=== PATIENT | male | born 1950 | race Two or more races ===

== ENCOUNTER 2019-06-19 12:17 | Inpatient (IN) | payer MEDICARE, OTHER ==
[~2019-06-19] VITALS: Ht 162.6 cm; Wt 73.0 kg
[2019-06-19] MEDS ORDERED: ONDANSETRON HCL 4MG/2ML INJ IV STA (12:51)
[2019-06-19] MEDS ORDERED: MORPHINE SULFATE 4 MG/ML CPJ (NOT FOR IM USE) IV STA (12:51)
[2019-06-19] MEDS ORDERED: NITROGLYCERIN OINT 1GM/INCH UDPKT TD ONE (13:00)
[2019-06-19] MEDS ORDERED: ASPIRIN 81MG TABLET PO ONE (13:00)
[2019-06-19 13:19] LABS: BASOPHILS % 0.8 % (0.0-2.0); EOSINOPHILS % 5.3 % (0.0-5.0); LYMPHOCYTES % 23.1 % (20.0-50.0); MEAN CORPUSCULAR HEMOGLOBIN 33.4 pg (28.0-32.0); MEAN CORPUSCULAR VOLUME 97.7 fL (80.0-94.0); MEAN PLATELET VOLUME 7.6 fl (7.4-10.4); MONOCYTES % 6.8 % (2.0-8.0); PLATELET 188 x1000/uL (130-400); RED BLOOD CELL COUNT 4.51 mill/uL (4.7-6.1); RED CELL DISTRIBUTION WIDTH 13.4 % (11.6-14.6)
[2019-06-19 13:28] LABS: CHLORIDE 107 mEq/L (98-107)
[2019-06-19 13:31] LABS: ETHANOL BLOOD < 10 mg/dL
[2019-06-19 15:10] LABS: *AMPHETAMINES SCREEN URINE NEGATIVE (NEGATIVE); *BARBITURATES SCREEN URINE NEGATIVE (NEGATIVE); *BENZODIAZEPINES SCREEN URINE NEGATIVE (NEGATIVE); *COCAINE SCREEN URINE NEGATIVE (NEGATIVE); METHADONE URINE SCREEN NEGATIVE (NEGATIVE); OPIATES URINE SCREEN NEGATIVE (NEGATIVE)
[2019-06-19 15:11] LABS: CANNABINOID URINE SCREEN NEGATIVE (NEGATIVE); PHENCYCLIDINE URINE SCREEN NEGATIVE (NEGATIVE)
[2019-06-19 15:45] VITALS: BP 116/52
[2019-06-19 16:00] VITALS: BP 116/52
[2019-06-19] MEDS ORDERED: DOCU100T PO (16:30)
[2019-06-19] MEDS ORDERED: ROPI0.257 PO (16:30)
[2019-06-19] MEDS ORDERED: AMAN100T PO (16:30)
[2019-06-19] MEDS ORDERED: TICA90TA PO (16:30)
[2019-06-19] MEDS ORDERED: ENTA200T2 PO (16:42)
[2019-06-19] MEDS ORDERED: MIRT15TA6 PO (16:42)
[2019-06-19] MEDS ORDERED: CARB-32 PO (16:42)
[2019-06-19] MEDS ORDERED: ATOR40TA70 PO (16:42)
[2019-06-19] MEDS ORDERED: POLY119P18 PO (16:42)
[2019-06-19] MEDS ORDERED: SERT-112 PO (16:42)
[2019-06-19] MEDS ORDERED: VENL-180 PO (16:43)
[2019-06-19] MEDS ORDERED: ASPI-1393 PO (18:38)
[2019-06-19] MEDS ORDERED: MAGNESIUM/ALUMINUM HYDROXIDE/SIMETHICONE 30ML UDC PO PRN (18:45)
[2019-06-19] MEDS ORDERED: CLONIDINE 0.1MG TABLET PO PRN (18:45)
[2019-06-19] MEDS ORDERED: GUAIFENESIN 200MG/10ML SUGAR FREE UDC PO PRN (18:45)
[2019-06-19] MEDS ORDERED: ONDANSETRON HCL 4MG/2ML INJ IV PRN (18:45)
[2019-06-19] MEDS ORDERED: ACETAMINOPHEN 325MG TABLET PO PRN (18:45)
[2019-06-19] MEDS ORDERED: DIPHENHYDRAMINE 50MG/ML VIAL IV PRN (18:45)
[2019-06-19 20:00] VITALS: BP 106/70
[2019-06-19] MEDS: ENOXAPARIN 40MG/0.4ML SYR SUBCUT SCH (20:57)
[2019-06-19] MEDS: MIRTAZAPINE 15MG TABLET PO SCH (20:58)
[2019-06-19] MEDS: VENLAFAXINE HCL 75MG TABLET PO SCH (20:58)
[2019-06-19] MEDS: ATORVASTATIN CALCIUM 40MG TABLET PO SCH (20:58)
[2019-06-19] MEDS: FAMOTIDINE 20MG TABLET PO SCH (20:58)
[2019-06-19] MEDS: ENTACAPONE 200MG TABLET PO SCH (20:58)
[2019-06-19] MEDS: CARBIDOPA/LEVODOPA 25/100MG TABLET PO SCH (20:59)
[2019-06-19] MEDS: SODIUM CHLORIDE 0.9% INJ 3ML FLUSH IVF SCH (21:02)
[2019-06-20 00:42] VITALS: BP 104/70
[2019-06-20 04:00] VITALS: BP 107/60
[2019-06-20] MEDS: CARBIDOPA/LEVODOPA 25/100MG TABLET PO SCH ×3 (05:29→21:29)
[2019-06-20] MEDS: SODIUM CHLORIDE 0.9% INJ 3ML FLUSH IVF SCH ×3 (05:36→21:29)
[2019-06-20] MEDS ORDERED: REGADENOSON 0.4 MG/5 ML IV NR (06:45)
[2019-06-20 07:36] LABS: LDL CHOLESTEROL 75 mg/dL (5-100)
[2019-06-20 07:37] LABS: HDL CHOLESTEROL 32 mg/dL (40-59)
[2019-06-20 08:00] VITALS: BP 115/68
[2019-06-20] MEDS: POLYETHYLENE GLYCOL 3350 (17GM) 1 DOSE PACK PO SCH (08:54)
[2019-06-20] MEDS: ENTACAPONE 200MG TABLET PO SCH ×4 (08:55→20:46)
[2019-06-20] MEDS: ROPINIROLE HCL 0.25MG TABLET PO SCH ×2 (08:55→17:05)
[2019-06-20] MEDS: DOCUSATE SODIUM 100MG CAPSULE PO SCH ×2 (08:55→17:06)
[2019-06-20] MEDS: TICAGRELOR 90 MG TABLET PO SCH ×2 (08:56→17:06)
[2019-06-20] MEDS: ASPIRIN 81MG EC TABLET PO SCH (08:56)
[2019-06-20] MEDS: SERTRALINE HCL 100MG TABLET PO SCH (08:56)
[2019-06-20] MEDS: METOPROLOL TARTRATE 25MG TABLET PO SCH ×2 (09:03→20:45)
[2019-06-20] MEDS: VENLAFAXINE HCL 75MG TABLET PO SCH ×2 (09:06→20:46)
[2019-06-20 12:00] VITALS: BP 100/54
[2019-06-20 13:44] LABS: HEMATOCRIT 44.9 % (42.0-52.0); HEMOGLOBIN 15.2 g/dL (14.0-18.0); MEAN CORPUSCULAR HEMOGLOBIN 33.4 pg (28.0-32.0); MEAN CORPUSCULAR VOLUME 98.6 fL (80.0-94.0); PLATELET 196 x1000/uL (130-400); RED BLOOD CELL COUNT 4.55 mill/uL (4.7-6.1); RED CELL DISTRIBUTION WIDTH 13.5 % (11.6-14.6)
[2019-06-20 14:04] LABS: CHLORIDE 105 mEq/L (98-107)
[2019-06-20 16:00] VITALS: BP 110/66
[2019-06-20 20:00] VITALS: BP 131/78
[2019-06-20] MEDS: ENOXAPARIN 40MG/0.4ML SYR SUBCUT SCH (20:45)
[2019-06-20] MEDS: ATORVASTATIN CALCIUM 40MG TABLET PO SCH (20:46)
[2019-06-20] MEDS: FAMOTIDINE 20MG TABLET PO SCH (20:46)
[2019-06-20] MEDS: MIRTAZAPINE 15MG TABLET PO SCH (20:47)
[2019-06-20] MEDS ORDERED: ATORVASTATIN CALCIUM 10MG TABLET PO SCH (21:00)
[2019-06-21] VITALS: BP 135/67
[2019-06-21 04:00] VITALS: BP 112/62
[2019-06-21] MEDS: CARBIDOPA/LEVODOPA 25/100MG TABLET PO SCH ×3 (05:57→21:14)
[2019-06-21] MEDS: SODIUM CHLORIDE 0.9% INJ 3ML FLUSH IVF SCH ×3 (05:57→21:24)
[2019-06-21 07:27] LABS: HEMATOCRIT 43.1 % (42.0-52.0); HEMOGLOBIN 14.4 g/dL (14.0-18.0); MEAN CORPUSCULAR HEMOGLOBIN 32.9 pg (28.0-32.0); MEAN CORPUSCULAR VOLUME 98.2 fL (80.0-94.0); PLATELET 172 x1000/uL (130-400); RED BLOOD CELL COUNT 4.39 mill/uL (4.7-6.1); RED CELL DISTRIBUTION WIDTH 13.4 % (11.6-14.6)
[2019-06-21 07:56] LABS: CHLORIDE 103 mEq/L (98-107)
[2019-06-21 08:00] VITALS: BP 108/72
[2019-06-21] MEDS: TICAGRELOR 90 MG TABLET PO SCH ×2 (08:15→16:36)
[2019-06-21] MEDS: ROPINIROLE HCL 0.25MG TABLET PO SCH ×2 (08:15→16:36)
[2019-06-21] MEDS: DOCUSATE SODIUM 100MG CAPSULE PO SCH ×2 (08:15→16:36)
[2019-06-21] MEDS: SERTRALINE HCL 100MG TABLET PO SCH (08:15)
[2019-06-21] MEDS: ASPIRIN 81MG EC TABLET PO SCH (08:15)
[2019-06-21] MEDS: ENTACAPONE 200MG TABLET PO SCH ×4 (08:15→21:24)
[2019-06-21] MEDS: VENLAFAXINE HCL 75MG TABLET PO SCH ×2 (08:16→21:22)
[2019-06-21] MEDS: METOPROLOL TARTRATE 25MG TABLET PO SCH ×2 (08:16→21:00)
[2019-06-21] MEDS: POLYETHYLENE GLYCOL 3350 (17GM) 1 DOSE PACK PO SCH (08:16)
[2019-06-21 12:00] VITALS: BP 105/68
[2019-06-21 15:43] VITALS: BP 108/66
[2019-06-21 20:00] VITALS: BP 109/67
[2019-06-21] MEDS: FAMOTIDINE 20MG TABLET PO SCH (21:14)
[2019-06-21] MEDS: MIRTAZAPINE 15MG TABLET PO SCH (21:14)
[2019-06-21] MEDS: ATORVASTATIN CALCIUM 40MG TABLET PO SCH (21:14)
[2019-06-21] MEDS: ENOXAPARIN 40MG/0.4ML SYR SUBCUT SCH (21:20)
[2019-06-22] VITALS: BP 100/70
[2019-06-22 04:00] VITALS: BP 115/73
[2019-06-22] MEDS: CARBIDOPA/LEVODOPA 25/100MG TABLET PO SCH ×3 (05:31→21:59)
[2019-06-22] MEDS: SODIUM CHLORIDE 0.9% INJ 3ML FLUSH IVF SCH ×3 (05:57→21:59)
[2019-06-22 07:53] LABS: BASOPHILS % 0.6 % (0.0-2.0); EOSINOPHILS % 6.2 % (0.0-5.0); HEMATOCRIT. 44.5 % (42.0-52.0); HEMOGLOBIN. 15.1 g/dL (14.0-18.0); LYMPHOCYTES % 26.4 % (20.0-50.0); MEAN CORPUSCULAR HEMOGLOBIN 33.1 pg (28.0-32.0); MEAN CORPUSCULAR VOLUME 97.5 fL (80.0-94.0); MEAN PLATELET VOLUME 7.4 fl (7.4-10.4); NEUTROPHILS % 59.8 % (40.0-76.0); PLATELET 170 x1000/uL (130-400); RED BLOOD CELL COUNT 4.56 mill/uL (4.7-6.1); RED CELL DISTRIBUTION WIDTH 13.6 % (11.6-14.6)
[2019-06-22 08:00] VITALS: BP 129/78
[2019-06-22] MEDS: ROPINIROLE HCL 0.25MG TABLET PO SCH ×2 (08:38→20:05)
[2019-06-22] MEDS: METOPROLOL TARTRATE 25MG TABLET PO SCH ×2 (08:38→20:36)
[2019-06-22] MEDS: SERTRALINE HCL 100MG TABLET PO SCH (08:38)
[2019-06-22] MEDS: TICAGRELOR 90 MG TABLET PO SCH ×2 (08:38→20:02)
[2019-06-22] MEDS: ENTACAPONE 200MG TABLET PO SCH ×4 (08:38→21:00)
[2019-06-22] MEDS: ASPIRIN 81MG EC TABLET PO SCH (08:38)
[2019-06-22] MEDS: DOCUSATE SODIUM 100MG CAPSULE PO SCH ×2 (08:39→20:01)
[2019-06-22 08:51] LABS: CHLORIDE 104 mEq/L (98-107)
[2019-06-22] MEDS ORDERED: REGADENOSON 0.4 MG/5 ML IV ONE (10:20)
[2019-06-22 12:00] VITALS: BP 120/63
[2019-06-22] MEDS: VENLAFAXINE HCL 50MG TABLET PO SCH ×2 (14:22→21:05)
[2019-06-22] MEDS: POLYETHYLENE GLYCOL 3350 (17GM) 1 DOSE PACK PO SCH (14:26)
[2019-06-22 16:00] VITALS: BP 110/80
[2019-06-22 20:00] VITALS: BP 107/76
[2019-06-22] MEDS: ENOXAPARIN 40MG/0.4ML SYR SUBCUT SCH (21:04)
[2019-06-22] MEDS: FAMOTIDINE 20MG TABLET PO SCH (21:05)
[2019-06-22] MEDS: ATORVASTATIN CALCIUM 40MG TABLET PO SCH (21:06)
[2019-06-22] MEDS: MIRTAZAPINE 15MG TABLET PO SCH (21:06)
[2019-06-23] VITALS (7 sets, daily range): BP systolic 100–130; BP diastolic 59–78
[2019-06-23] MEDS: CARBIDOPA/LEVODOPA 25/100MG TABLET PO SCH ×2 (05:38→12:57)
[2019-06-23] MEDS: SODIUM CHLORIDE 0.9% INJ 3ML FLUSH IVF SCH ×2 (05:38→14:36)
[2019-06-23] MEDS: SERTRALINE HCL 100MG TABLET PO SCH (09:02)
[2019-06-23] MEDS: TICAGRELOR 90 MG TABLET PO SCH ×2 (09:02→17:05)
[2019-06-23] MEDS: ENTACAPONE 200MG TABLET PO SCH ×4 (09:02→20:27)
[2019-06-23] MEDS: ASPIRIN 81MG EC TABLET PO SCH (09:02)
[2019-06-23] MEDS: VENLAFAXINE HCL 50MG TABLET PO SCH ×2 (09:02→20:29)
[2019-06-23] MEDS: DOCUSATE SODIUM 100MG CAPSULE PO SCH ×2 (09:02→17:05)
[2019-06-23] MEDS: ROPINIROLE HCL 0.25MG TABLET PO SCH ×2 (09:02→17:04)
[2019-06-23] MEDS: POLYETHYLENE GLYCOL 3350 (17GM) 1 DOSE PACK PO SCH (09:03)
[2019-06-23] MEDS: METOPROLOL TARTRATE 25MG TABLET PO SCH ×2 (09:03→20:30)
[2019-06-23] MEDS: ENOXAPARIN 40MG/0.4ML SYR SUBCUT SCH (20:28)
[2019-06-23] MEDS: MIRTAZAPINE 15MG TABLET PO SCH (20:29)
[2019-06-23] MEDS: FAMOTIDINE 20MG TABLET PO SCH (20:29)
[2019-06-23] MEDS: ATORVASTATIN CALCIUM 40MG TABLET PO SCH (20:29)
== END 2019-06-23 21:00 | DRG 206 ==
LOC: ER 12:17 → 8WST 13:38 → EDBEDREQ 13:44 → ENRESERV 14:26 → CANRESERV 14:26
PROVIDERS: ADMIT Internal Medicine; ATTEND Internal Medicine
DX: M94.0 Chondrocostal junction syndrome [Tietze] (principal); I25.10 Atherosclerotic heart disease of native coronary artery without angina pectoris; G20 Parkinson's disease; F32.9 Major depressive disorder, single episode, unspecified; E78.5 Hyperlipidemia, unspecified; E78.1 Pure hyperglyceridemia; E78.00 Pure hypercholesterolemia, unspecified; I10 Essential (primary) hypertension; Z79.02 Long term (current) use of antithrombotics/antiplatelets; Z82.3 Family history of stroke; Z82.49 Family history of ischemic heart disease and other diseases of the circulatory system; Z95.5 Presence of coronary angioplasty implant and graft; Z79.899 Other long term (current) drug therapy; I25.2 Old myocardial infarction
CPT/HCPCS: 36415; 71045; 78452; 80048; 80053; 80061; 80305; 80320; 83880; 84484; 85025; 85027; 85379; 93005; 93017; 93306; 93970; 99285; A9500; J1650; J2270; J2405; J2785; G0480; J8499

== ENCOUNTER 2020-03-06 12:01 | Emergency (ER) | payer MEDICARE, OTHER ==
[~2020-03-06] VITALS: Ht 165.1 cm; Wt 75.0 kg
[~2020-03-06 12:01] MED LIST: AMAN100T PO; ASPI-1497 PO; ATOR40TA70 PO; CARB-32 PO; DOCU100T PO; ENTA200T2 PO; MIRT15TA6 PO; POLY119P18 PO; ROPI0.257 PO; SERT-112 PO; TICA90TA PO; VENL-180 PO
[2020-03-06 13:44] LABS: BASOPHILS % 0.4 % (0.0-2.0); EOSINOPHILS % 2.7 % (0.0-5.0); HEMATOCRIT. 39.7 % (42.0-52.0); HEMOGLOBIN. 13.9 g/dL (14.0-18.0); LYMPHOCYTES % 24.3 % (20.0-50.0); MEAN CORPUSCULAR HEMOGLOBIN 33.9 pg (28.0-32.0); MEAN CORPUSCULAR VOLUME 96.4 fL (80.0-94.0); MEAN PLATELET VOLUME 7.7 fl (7.4-10.4); MONOCYTES % 7.6 % (2.0-8.0); PLATELET 180 x1000/uL (130-400); RED BLOOD CELL COUNT 4.11 mill/uL (4.7-6.1); RED CELL DISTRIBUTION WIDTH 13.9 % (11.6-14.6)
[2020-03-06 13:55] LABS: CHLORIDE 105 mEq/L (98-107)
[2020-03-06 14:02] LABS: BETA HYDROXYBUTYRATE 0.3 mMol/L (0.0-0.3)
[2020-03-06 14:34] LABS: CLARITY URINE CLEAR (CLEAR); COLOR URINE YELLOW (YELLOW); KETONES URINE NEGATIVE (NEGATIVE); LEUKOCYTE ESTERASE URINE NEGATIVE (NEGATIVE); NITRITE URINE NEGATIVE (NEGATIVE); OCCULT BLOOD URINE NEGATIVE (NEGATIVE); PH URINE 6.5 (4.5-8.0); PROTEIN URINE NEGATIVE (NEGATIVE); SPECIFIC GRAVITY URINE 1.011 (1.005-1.030); UROBILINOGEN URINE 0.2 E.U./dL (0.2-1.0)
[2020-03-06 14:53] LABS: *BARBITURATES SCREEN URINE NEGATIVE (NEGATIVE); *BENZODIAZEPINES SCREEN URINE NEGATIVE (NEGATIVE); *COCAINE SCREEN URINE NEGATIVE (NEGATIVE)
[2020-03-06 14:54] LABS: *AMPHETAMINES SCREEN URINE NEGATIVE (NEGATIVE); CANNABINOID URINE SCREEN NEGATIVE (NEGATIVE); METHADONE URINE SCREEN NEGATIVE (NEGATIVE); OPIATES URINE SCREEN NEGATIVE (NEGATIVE); PHENCYCLIDINE URINE SCREEN NEGATIVE (NEGATIVE)
[2020-03-06 15:24] LABS: HEPATITIS B SURFACE ANTIGEN NEGATIVE
[2020-03-06 15:53] LABS: HEPATITIS A AB IGM NEGATIVE (NEGATIVE)
[2020-03-06] MEDS ORDERED: SODIUM CHLORIDE 0.9% 1,000 ML IV ONE ×2 (16:45→18:30)
[2020-03-07 01:30] VITALS: BP 99/69
== END 2020-03-07 02:04 | disposition home or self-care (01) ==
LOC: ER 12:17
DX: R07.89 Other chest pain (principal); E86.0 Dehydration; I11.0 Hypertensive heart disease with heart failure; I50.9 Heart failure, unspecified; G20 Parkinson's disease
CPT/HCPCS: 36415; 71045; 80053; 80305; 81003; 82010; 82962; 83605; 83880; 84145; 84484; 85025; 85651; 86705; 86709; 86803; 87040; 87086; 87340; 93005; 96360; 96361; 99285; J7030